=== PATIENT | female | born 1985 | race Two or more races ===

== ENCOUNTER 2018-05-02 09:47 | Emergency (ER) | payer MEDICAID ==
[~2018-05-02] VITALS: Ht 165.1 cm; Wt 62.6 kg
[2018-05-02 10:05] VITALS: BP 116/85
== END 2018-05-02 10:43 | disposition home or self-care (01) ==
LOC: ER 09:48
DX: B35.4 Tinea corporis (principal); L01.09 Other impetigo
CPT/HCPCS: 99283; A4606; Z7610

== ENCOUNTER 2019-02-16 21:59 | Emergency (ER) | payer MEDICAID ==
[~2019-02-16] VITALS: Ht 162.6 cm; Wt 63.5 kg
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
[2019-02-16 22:52] LABS: BASOPHILS % (AUTO) 0.7 % (0.0-2.0); EOSINOPHILS % (AUTO) 2.7 % (0.0-6.0); HEMATOCRIT 36 % (33-45); HEMOGLOBIN 11.8 g/dL (11.5-14.8); LYMPHOCYTES # (AUTO) 2.2 /CMM (0.8-4.8); LYMPHOCYTES % (AUTO) 32.8 % (20.0-44.0); MEAN CORPUSCULAR HGB CONC 33 g/dl (31.0-36.0); MEAN CORPUSCULAR VOLUME 87 fL (82-100); MONOCYTES # (AUTO) 0.8 /CMM (0.1-1.30); MONOCYTES % (AUTO) 11.7 % (2.0-12.0); NEUTROPHILS # (AUTO) 3.5 /CMM (1.8-8.9); NEUTROPHILS % (AUTO) 52.1 % (43.0-81.0); PLATELET COUNT (AUTO) 178 /CMM (150-450); WHITE BLOOD COUNT (AUTO) 6.7 K/uL (4.3-11.0)
[2019-02-16 23:01] LABS: CALCIUM, SERUM 9.2 mg/dL (8.5-10.1); CARBON DIOXIDE 30 mmol/L (21-32); CHLORIDE 103 mmol/L (98-107); CREATININE 0.6 mg/dL (0.6-1.3); GLUCOSE 92 mg/dL (74-106); POTASSIUM 3.7 mmol/L (3.5-5.1); SODIUM SERUM 139 mmol/L (136-145); UREA NITROGEN, BLOOD 12 mg/dL (7-18)
[2019-02-16 23:04] LABS: C-REACTIVE PROTEIN < 0.2 mg/dL (0.0-0.9)
[2019-02-16 23:07] LABS: ALANINE AMINOTRANSFERASE 22 U/L (12-78); ALBUMIN 3.8 g/dL (3.4-5.0); ALKALINE PHOSPHATASE 51 U/L (46-116); ASPARTATE AMINOTRANSFERASE 15 U/L (15-37); BILIRUBIN,DIRECT 0.1 mg/dL (0.0-0.2); BILIRUBIN,TOTAL 0.4 mg/dL (0.2-1.0); TOTAL PROTEIN, SERUM 7.6 g/dL (6.4-8.2)
[2019-02-16 23:56] VITALS: BP 137/87
--- NOTE | 2019-02-16 23:56 | NUR ---
Patient discharged to home in stable condition. Rx and Written and verbal after care instructions given. Patient verbalizes understanding of instruction.
== END 2019-02-16 23:59 | disposition home or self-care (01) ==
LOC: ER 22:03
DX: R21 Rash and other nonspecific skin eruption (principal)
CPT/HCPCS: 36415; 80048-TC; 80076-TC; 85025-TC; 85610-TC; 85652-TC; 85730-TC; 86140-TC

== ENCOUNTER 2019-08-12 11:00 | Emergency (ER) | payer MEDICAID ==
[~2019-08-12] VITALS: Ht 167.6 cm; Wt 59.0 kg
--- NOTE | 2019-08-12 11:10 | NUR ---
STILL AWAITING ER MD FOR EVAL.
[2019-08-12 11:11] VITALS: BP 135/81
--- NOTE | 2019-08-12 12:44 | NUR ---
Patient discharged to home in stable condition. Written and verbal after care instructions given. Patient verbalizes understanding of instruction.
== END 2019-08-12 12:45 | disposition home or self-care (01) ==
LOC: ER 11:02
DX: B34.9 Viral infection, unspecified (principal)